=== PATIENT | female | born 1950 | race Caucasian/White ===

== ENCOUNTER 2018-11-04 08:22 | Day surgery (SDC) | payer BC ==
[2018-11-01 14:33] VITALS: BMI 19.8
[2018-11-04] MEDS ORDERED: PROPOFOL 20 ML ONE ×2 (08:43)
[2018-11-04 12:02] VITALS: TEMP 97.9
[2018-11-04 12:13] VITALS: BP 97/48; PULSE 74
== END 2018-11-04 10:55 | disposition home or self-care (01) ==
LOC: FASU-ENDO 08:22
PROVIDERS: ATTEND Internal Medicine Gastroenterology
PROC: 0DJD8ZZ Inspection of Lower Intestinal Tract, Via Natural or Artificial Opening Endoscopic (ICD-10-PCS; principal; 2018-11-04 10:06)
DX: Z12.11 Encounter for screening for malignant neoplasm of colon (principal); K57.90 Diverticulosis of intestine, part unspecified, without perforation or abscess without bleeding

== ENCOUNTER 2021-07-20 07:27 | Day surgery (SDC) | payer BC ==
[2021-07-15 12:11] VITALS: BMI 19.1
[2021-07-20] MEDS ORDERED: PHENYLEPHRINE 2.5% OPHTH SOLN 15 ML BOTTLE ONE (07:36)
[2021-07-20] MEDS ORDERED: CYCLOPENTOLATE 2% OPHTH SOLN 2 ML BOTTLE ONE (07:36)
[2021-07-20] MEDS ORDERED: CIPROFLOXACIN 0.3% EYE DROPS 5 ML BOTTLE ONE (07:37)
[2021-07-20] MEDS ORDERED: TROPICAMIDE 1% OPHTH SOLN 15 ML BOTTLE ONE (07:37)
[2021-07-20] MEDS ORDERED: TROPICAMIDE 1% OPHTH SOLN 15 ML BOTTLE OS ONE ×3 (07:50→08:00)
[2021-07-20] MEDS ORDERED: CIPROFLOXACIN 0.3% EYE DROPS 5 ML BOTTLE OS ONE ×3 (07:50→08:00)
[2021-07-20] MEDS ORDERED: PHENYLEPHRINE 2.5% OPHTH SOLN 15 ML BOTTLE OS ONE ×3 (07:50→08:00)
[2021-07-20] MEDS ORDERED: CYCLOPENTOLATE 2% OPHTH SOLN 2 ML BOTTLE OS ONE ×3 (07:50→08:00)
[2021-07-20] MEDS ORDERED: LIDOCAINE 1% P/F 10 MG/ML VIAL ONE (09:24)
[2021-07-20] MEDS ORDERED: BSS (NA/CA/MG/K) BALANCED SALT SOLUTION OPHTH SOLN 15 ML BOTTLE ONE (09:25)
[2021-07-20] MEDS ORDERED: TETRACAINE 0.5% OPHTH SOLN 2 ML BOTTLE ONE (09:25)
[2021-07-20] MEDS ORDERED: CARBACHOL 0.01% INTRA-OCULAR 1.5 ML VIAL ONE (09:25)
[2021-07-20] MEDS ORDERED: NEO/POLYMYX B SULF/DEXAMETH OPHTHALMIC 5ML BOTTLE ONE (09:26)
[2021-07-20] MEDS ORDERED: MIDAZOLAM HCL 2 MG/2 ML SINGLE DOSE VIAL ONE (09:41)
[2021-07-20 13:59] VITALS: PULSE 74; TEMP 97.8
[2021-07-20 14:02] VITALS: BP 119/58
== END 2021-07-20 11:10 | disposition home or self-care (01) ==
LOC: FASU 07:27
PROVIDERS: ATTEND Ophthalmology
PROC: 08RK3JZ Replacement of Left Lens with Synthetic Substitute, Percutaneous Approach (ICD-10-PCS; principal; 2021-07-20 09:46)
DX: H26.8 Other specified cataract (principal)

== ENCOUNTER 2021-09-21 06:31 | Day surgery (SDC) | payer BC ==
[2021-09-20 11:10] VITALS: BMI 18.6
[2021-09-21] MEDS: CYCLOPENTOLATE 2% OPHTH SOLN 2 ML BOTTLE ONE ×3 (07:05→07:15)
[2021-09-21] MEDS: CIPROFLOXACIN 0.3% EYE DROPS 5 ML BOTTLE ONE ×3 (07:05→07:15)
[2021-09-21] MEDS: PHENYLEPHRINE 2.5% OPHTH SOLN 15 ML BOTTLE ONE ×3 (07:05→07:15)
[2021-09-21] MEDS: TROPICAMIDE 1% OPHTH SOLN 15 ML BOTTLE ONE ×3 (07:05→07:15)
[2021-09-21] MEDS ORDERED: MIDAZOLAM HCL 2 MG/2 ML SINGLE DOSE VIAL ONE (08:06)
[2021-09-21] MEDS ORDERED: NEO/POLYMYX B SULF/DEXAMETH OPHTHALMIC 5ML BOTTLE ONE (08:36)
[2021-09-21] MEDS ORDERED: BSS (NA/CA/MG/K) BALANCED SALT SOLUTION OPHTH SOLN 15 ML BOTTLE ONE (08:36)
[2021-09-21] MEDS ORDERED: TETRACAINE 0.5% OPHTH SOLN 2 ML BOTTLE ONE (08:36)
[2021-09-21] MEDS ORDERED: LIDOCAINE 1% P/F 10 MG/ML VIAL ONE (08:36)
[2021-09-21] MEDS ORDERED: CARBACHOL 0.01% INTRA-OCULAR 1.5 ML VIAL ONE (08:36)
[2021-09-21 08:49] VITALS: PULSE 76; TEMP 97.8
[2021-09-21 09:27] VITALS: BP 121/67
== END 2021-09-21 09:25 | disposition home or self-care (01) ==
LOC: FASU 06:31
PROVIDERS: ATTEND Ophthalmology
PROC: 08RJ3JZ Replacement of Right Lens with Synthetic Substitute, Percutaneous Approach (ICD-10-PCS; principal; 2021-09-21 08:15)
DX: H26.8 Other specified cataract (principal)